=== PATIENT | male | born 1960 | race Caucasian/White ===

== ENCOUNTER 2021-05-23 15:08 | Emergency (ER) | payer SELFPAY ==
[2021-05-23 15:19] VITALS: BP 151/85; PULSE 77; TEMP 98; BMI 37.6
[2021-05-27 18:09] LABS: BABESIA MICROTI ANTIBODY IGG <1:10 (Neg:<1:10); BABESIA MICROTI ANTIBODY IGM <1:10 (Neg:<1:10)
[2021-05-30 16:10] LABS: E.chaff HME IgG Negative (Neg:<1:64)
== END 2021-05-23 17:25 | disposition home or self-care (01) ==
LOC: JERFT 15:08
DX: G51.0 Bell's palsy (principal)
CPT/HCPCS: 36415; 86618; 86666; 86753; 99283-25